=== PATIENT | male | born 1960 | race Caucasian/White ===

== ENCOUNTER 2024-05-05 03:05 | Emergency (ER) | payer BC ==
[~2024-05-05] VITALS: Ht 182.9 cm; Wt 118.0 kg
--- NOTE | 2024-05-05 03:38 | ED.PDOC ---
History of Present Illness HPI Comments 63 y/o M, with a Hx of AFIB, HTN, and obesity, is BIBA for c/o irregular heartbeat and palpitations, today. Patient endorses on unprovoked and sudden onset of palpitations, this morning, that has been persisting since. He comments on concern, due to feeling similar to when he had AFIB that he has been without since receiving an angiogram in 2010. Patient admits to current ASA and Metoprolol as the only medications he takes, currently. He denies having any chest pain, shortness of breath, nausea, vomiting, dizziness, or other associated symptoms or modifiers at this time. Chief Complaint: Palpitations Time Seen by MD: 03:25 Primary Care Provider: Saurabh Buck Notes: Nurses Notes, Statistics Teacher Notes, Medications, Allergies Information Source: Patient, Emergency Med Personnel Mode of Arrival: EMS Severity: Moderate Timing: Hours Duration: Since onset Prehospital treatment: 12 Lead EKG, Sugar Presser Past Medical History PAST MEDICAL HISTORY: AFIB, HTN Past Medical History (Other): obesity Surgical History: Denies all surgeries Family History Family History: Unknown Social History Smoker: Non-Smoker Alcohol: Denies ETOH Use Drugs: Denies Drug Use Lives In: Home Cardiovascular: reports: irregular heart beat, palpitations All Other Systems: Reviewed and Negative (negative unless otherwise stated above or in HPI) Physical Exam General Appearance: No Apparent Distress, Obese HEENT: Normal ENT Inspection, Pharynx Normal, TMs Normal Neck: Full Range of Motion, Non-Tender, Normal, Normal Inspection Respiratory: Chest Non-Tender, Lungs Clear, No Accessory Muscle Use, No Respiratory Distress, Normal Breath Sounds Cardiovascular: Irregular (irregular ), No Edema, No JVD, No Murmur, No Gallop, Normal Peripheral Pulses Breast Exam: Deferred Gastrointestinal: No Organomegaly, Non Tender, No Pulsatile Mass, Normal Bowel Sounds, Soft Genitalia: Deferred Pelvic: Deferred Rectal: Deferred Extremities: No calf tenderness, Normal capillary refill, Normal inspection, Normal range of motion, Non-tender, No pedal edema Musculoskeletal : Apperance: Normal Neurologic: Alert, medicaid billing specialist II-XII nml as Tested, No Motor Deficits, Normal Affect, Normal Mood, No Sensory Deficits Cerebellar Function: Normal Reflexes: Normal Skin: Dry, Normal Color, Warm Lymphatic: No Adenopathy Was a procedure done? Was a procedure done?: No EKG EKG : Pulse Rate (adult): 88 Ailey: Normal Cardiac Rhythm: Afib Block: None Hypertrophy: None ST: Normal Differential Dx Considerations may include: AFIB, arrhythmia X-Ray, Labs, Meds, VS Vital Signs Date Time Temp Pulse Resp B/P (MAP) Pulse Ox O2 Delivery O2 Flow Rate FiO2 05/05/24 04:03 132 05/05/24 03:38 88 05/05/24 03:08 98.7 106 18 147/46 (79) 98 05/05/24 03:08 88 05/05/24 03:07 88 Lab Test 05/05/24 03:43 Range/Units White Blood Count 9.3 4.4-10.8 10^3/uL Red Blood Count 5.67 4.5-5.90 10^6/uL Hemoglobin 17.0 13.5-17.5 g/dL Hematocrit 52.0 41.0-53.0 % Mean Corpuscular Volume 91.7 80.0-100.0 fL Mean Corpuscular Hemoglobin 30.0 28.0-32.0 pg Mean Corpuscular Hemoglobin Concent 32.8 32.0-36.0 g/dL Red Cell Distribution Width 13.7 11.8-14.3 % Platelet Count 227 140-450 10^3/uL Mean Platelet Volume 8.1 6.9-10.8 fL Neutrophils (%) (Auto) 60.0 37.0-80.0 % Lymphocytes (%) (Auto) 30.8 10.0-50.0 % Monocytes (%) (Auto) 7.1 0.0-12.0 % Eosinophils (%) (Auto) 1.8 0.0-7.0 % Basophils (%) (Auto) 0.3 0.0-2.0 % Neutrophils # (Auto) 5.6 1.6-8.6 10 ^3/uL Lymphocytes # (Auto) 2.9 0.4-5.4 10 ^3/uL Monocytes # (Auto) 0.7 0-1.3 10 ^3/uL Eosinophils # (Auto) 0.2 0-0.8 10 ^3/uL Basophils # (Auto) 0 0-0.2 10 ^3/uL Nucleated Red Blood Cells 0.2 % Sodium Level 138 136-145 mmol/L Potassium Level 4.4 3.5-5.1 mmol/L Chloride Level 106 98-107 mmol/L Carbon Dioxide Level 27 20-31 mmol/L Anion Gap 5 5-15 Blood Urea Nitrogen 13 9-23 mg/dL Creatinine 1.02 0.700-1.30 mg/dL Glomerular Filtration Rate Calc 82 >90 mL/min BUN/Creatinine Ratio 12.7 10.0-20.0 Serum Glucose 201 H 74-106 mg/dL Calcium Level 9.9 8.7-10.4 mg/dL Troponin I High Sensitivity 5 </=54 ng/L B-Type Natriuretic Peptide 18.36 0-100 pg/mL Time of 1ST Reevaluation: 03:55 Reevaluation 1ST: Unchanged Patient Education/Counseling: Diagnosis, Treatment Family Education/Counseling: No Family Present Additional Information patient's past medical encounters: ED physician note on 08/02/2010, hospital discharge summary report on 08/02/2010 The following tests were ordered, and results were reviewed by me: troponin, CXR, BNP, CBC, BMP, EKG Additional Information was gathered from interviewing the following independent historians: EMT I reviewed and agreed with the following test results read by other providers: CXR I discussed treatment and results with medical personnel Departure 1 Departure Time of Disposition: 04:58 (Patient with new onset AFib. Patient has a remote history of AFib however has not been on any medication or any issues for many years. We will admit patient for further workup and expert consultation) Impression: Primary Impression: Atrial fibrillation Qualified Codes: I48.0 - Paroxysmal atrial fibrillation Additional Impression: Palpitations Disposition: ADMITTED INPATIENT Admit to: Med Surg Condition: Serious Critical Care Note Critical Care Time?: No Stability Stability form required: No Heart Score Heart Score: Heart Score Response (Comments) Value History N/A 0 EKG N/A 0 Age N/A 0 Risk Factors N/A 0 Troponin N/A 0 Total 0 I personally scribed for ISIDRA PEREZ MD ([email or web address]) on 05/05/24 at 03:38. Electronically submitted by Arsenio Houston ([email or web address]). I personally scribed for ISIDRA PEREZ MD ([email or web address]) on 05/05/24 at 03:39. Electronically submitted by Arsenio Houston ([email or web address]). ISIDRA PEREZ MD May 05, 2024 03:38
[2024-05-05 04:12] LABS: Basophils # (auto) 0 10 ^3/uL (0-0.2); Basophils % (auto) 0.3 % (0.0-2.0); Eosinophils # (auto) 0.2 10 ^3/uL (0-0.8); Eosinophils % (auto) 1.8 % (0.0-7.0); Lymphocytes # (auto) 2.9 10 ^3/uL (0.4-5.4); Lymphocytes % (auto) 30.8 % (10.0-50.0); Mean Corpuscular Hgb Conc. 32.8 g/dL (32.0-36.0); Mean Corpuscular Volume 91.7 fL (80.0-100.0); Monocytes # (auto) 0.7 10 ^3/uL (0-1.3); Monocytes % (auto) 7.1 % (0.0-12.0); Neutrophils # (auto) 5.6 10 ^3/uL (1.6-8.6); Nucleated Red Blood Cells % 0.2 %; Platelet Count (auto) 227 10^3/uL (140-450); Red Blood Cells 5.67 10^6/uL (4.5-5.90); Red Cell Distribution Width 13.7 % (11.8-14.3); White Blood Cell 9.3 10^3/uL (4.4-10.8)
[2024-05-05 04:17] LABS: Chloride 106 mmol/L (98-107); Potassium 4.4 mmol/L (3.5-5.1); Sodium 138 mmol/L (136-145)
[2024-05-05 04:18] LABS: Anion Gap 5 (5-15); Calcium 9.9 mg/dL (8.7-10.4); Carbon Dioxide 27 mmol/L (20-31)
[2024-05-05 04:23] LABS: BUN/Creatinine Ratio 12.7 (10.0-20.0); Blood Urea Nitrogen 13 mg/dL (9-23); Glucose 201 mg/dL (74-106)
--- NOTE | 2024-05-05 04:53 | DVH ---
XY CHEST TWO VIEWS ROUTINE CLINICAL HISTORY: Palpitations COMPARISON: None TECHNIQUE: Frontal and lateral view of the chest was obtained FINDINGS: Lines and Tubes: None Lungs: No focal consolidation. Pleura: No effusion. No pneumothorax. Cardiomediastinal contours: Unremarkable Bones: No acute osseous abnormality. IMPRESSION: 1. No acute cardiopulmonary disease.
[2024-05-05] MEDS: SODIUM CHLORIDE 0.9% 1,000 ML IV ONE (05:27)
--- NOTE | 2024-05-05 06:41 | ECG ---
[facility] Test Date: 2024-05-05 Test Time: 04:03:49 Pat Name: ROSALINDA GREGORIO Department: ED Room: Gender: M Finance Assistant: IRINA : 1960 Requested By: ISIDRA PEREZ Order Number: [id number] Reading MD: Jorgito Payan Measurements Intervals [place] Rate: 132 P: 0 WV: 0 QRS: 71 QRSD: 101 T: 3 QT: 292 QTc: 433 Interpretive Statements Atrial fibrillation Electronically Signed On 05-07-2024 16:35:09 PST by Jorgito Payan Please click the below link to view image of tracing.
--- NOTE | 2024-05-05 06:41 | ECG ---
[facility] Test Date: 2024-05-05 Test Time: 03:07:55 Pat Name: ROSALINDA GREGORIO Department: ED Room: Gender: M Manager Process Improvement: IRINA : 1960 Requested By: ISIDRA PEREZ Order Number: [id number] Reading MD: Jorgito Payan Measurements Intervals [place] Rate: 88 P: 0 DE: 0 QRS: 30 QRSD: 101 T: 49 QT: 331 QTc: 401 Interpretive Statements Atrial fibrillation Electronically Signed On 05-07-2024 16:35:00 PST by Jorgito Paayn Please click the below link to view image of tracing.
--- NOTE | 2024-05-05 06:42 | ECG ---
[facility] Test Date: 2024-05-05 Test Time: 06:01:07 Pat Name: ROSALINDA GREGORIO Department: ED Room: Gender: M Hoisting Machine Operator: IRINA : 1960 Requested By: ISIDRA PEREZ Order Number: [id number] Reading MD: Jorgito Payan Measurements Intervals [place] Rate: 105 P: 0 HI: 0 QRS: 32 QRSD: 98 T: 44 QT: 317 QTc: 420 Interpretive Statements Atrial fibrillation Electronically Signed On 05-07-2024 16:35:27 PST by Jorgito Payan Please click the below link to view image of tracing.
[2024-05-05 08:00] VITALS: PULSE 106; RESP 13; TEMP 98.5; O2SAT 95
[2024-05-05 11:32] LABS: Rapid Influenza A Negative (Negative); Rapid Influenza B Negative (Negative)
[2024-05-05 11:33] LABS: COVID19 ANTIGEN SOFIA FIA NEGATIVE (NEGATIVE)
[2024-05-05] MEDS: METOPROLOL TARTRATE 1MG/1ML-5ML VIAL IV ONE (11:50)
[2024-05-05] MEDS: METOPROLOL TARTRATE 25 MG TAB PO ONE (12:51)
[2024-05-05] MEDS ORDERED: METO-535 PO (17:12)
--- NOTE | 2024-05-05 17:28 | DVHDS2 ---
Discharge Summary Date of Admission Date of Discharge: May 05, 2024 Labs/Diagnostic Data: Laboratory Results Test 05/05/24 10:17 05/05/24 04:58 05/05/24 03:43 Influenza Type A Antigen Negative (Negative) Influenza Type B Antigen Negative (Negative) SARS-CoV-2 Antigen (Rapid) Negative (NEGATIVE) Troponin I High Sensitivity 7 ng/L (</=54) Thyroid Stimulating Hormone (TSH) 1.79 uIU/mL (0.55-4.78) White Blood Count 9.3 10^3/uL (4.4-10.8) Red Blood Count 5.67 10^6/uL (4.5-5.90) Hemoglobin 17.0 g/dL (13.5-17.5) Hematocrit 52.0 % (41.0-53.0) Mean Corpuscular Volume 91.7 fL (80.0-100.0) Mean Corpuscular Hemoglobin 30.0 pg (28.0-32.0) Mean Corpuscular Hemoglobin Concent 32.8 g/dL (32.0-36.0) Red Cell Distribution Width 13.7 % (11.8-14.3) Platelet Count 227 10^3/uL (140-450) Mean Platelet Volume 8.1 fL (6.9-10.8) Neutrophils (%) (Auto) 60.0 % (37.0-80.0) Lymphocytes (%) (Auto) 30.8 % (10.0-50.0) Monocytes (%) (Auto) 7.1 % (0.0-12.0) Eosinophils (%) (Auto) 1.8 % (0.0-7.0) Basophils (%) (Auto) 0.3 % (0.0-2.0) Neutrophils # (Auto) 5.6 10 ^3/uL (1.6-8.6) Lymphocytes # (Auto) 2.9 10 ^3/uL (0.4-5.4) Monocytes # (Auto) 0.7 10 ^3/uL (0-1.3) Eosinophils # (Auto) 0.2 10 ^3/uL (0-0.8) Basophils # (Auto) 0 10 ^3/uL (0-0.2) Nucleated Red Blood Cells 0.2 % Sodium Level 138 mmol/L (136-145) Potassium Level 4.4 mmol/L (3.5-5.1) Chloride Level 106 mmol/L (98-107) Carbon Dioxide Level 27 mmol/L (20-31) Anion Gap 5 (5-15) Blood Urea Nitrogen 13 mg/dL (9-23) Creatinine 1.02 mg/dL (0.700-1.30) Glomerular Filtration Rate Calc 82 mL/min (>90) BUN/Creatinine Ratio 12.7 (10.0-20.0) Serum Glucose 201 mg/dL (74-106) Calcium Level 9.9 mg/dL (8.7-10.4) B-Type Natriuretic Peptide 18.36 pg/mL (0-100) Other Laboratory Tests 05/05/24 03:43 Brief Hx & Hospital Course: Patient is a 63-year-old male with past medical history of atrial fibrillation on metoprolol succinate 50 mg extended release twice a day, aspirin 81 mg twice a day who presents with complaints of palpitations. Patient was noted to be in atrial fibrillation with RVR ranging from the 110s to 120s. And BNP were within normal limits. Glucose was noted to be 201. Patient notes he has a history of prediabetes. TSH was 1.79, within normal limits. Influenza and COVID were negative. Patient notes his symptoms began since he recently started using his exercise machine which is a spine decompressor that flips upside down. He notes that since using this machine, his palpitations began. BNP was noted to be 18. CBC patient was given NS 1 L bolus. He was given metoprolol tartrate 5 mg IV followed by metoprolol tartrate 75 mg p.o. His heart rate subsequently improved to the 80s. The sensation of palpitations had also improved. Patient was monitored for several hours in the ER and noted to maintain this heart rate. Patient was discharged on metoprolol succinate 75 mg p.o. twice daily. He is to discontinue his extended release formulation. Patient is to follow-up outpatient with cardiology GIRMA for further medication titration and TTE. Patient was given return precautions. [facility] case management arrange follow- up appointments. Patient discharged in stable condition. Condition at Discharge: Good Final Diagnosis/Problems List Atrial Fibrillation with RVR Secondary Diagnosis: Morbid Obesity with Risk Factors Hyperglycemia Discharge Disposition: Home Discharge Instruct/Medications Diet: Cardiac 2g Na,low cholest Activity: No Restrictions, As Tolerated Follow Up/Referral: Follow up with cardiology. [facility] Case Management to arrange appointment. Medications: Metoprolol Tartrate 75mg twice a day. Discharge Statement: "Patient was advised to return to the ER or call 911 if any headaches, dizziness, shortness of breath, chest pain, abdominal pain, bleeding, fevers, or worsening of medical condition. Patient was counseled about treatment plan, medications, possible side effects, patientverbalized understanding. All questions were answered to the best of my ability. This discharge took greater then 30 minutes in planning, reviewing documentation, counseling the patient, and discussing with other team members." ASSESSMENT ASSESSMENT Assessment Atrial Fibrillation JANNIE CHAVEZ DO May 05, 2024 17:28
[2024-05-05 17:55] VITALS: BP 123/66; PULSE 87; RESP 15; O2SAT 94
== END 2024-05-05 18:54 | disposition home or self-care (01) ==
LOC: ER 03:05 → EDBD 03:05 → ER 18:54
DX: I48.91 Unspecified atrial fibrillation (principal); R00.2 Palpitations; I10 Essential (primary) hypertension; Z20.822 Contact with and (suspected) exposure to COVID-19
CPT/HCPCS: 36415; 71046; 80048; 83880; 84443; 84484; 85025; 87426; 87804; 93005; 96361; 96374; 99285; J7030